=== PATIENT | male | born 1945 | race Caucasian/White ===

== ENCOUNTER 2020-05-14 10:44 | Emergency (ER) | payer MEDICARE, OTHER ==
--- NOTE | 2020-05-14 11:07 | ED Physician Documentation ---
PD HPI CHEST PAIN - Stated complaint Stated Complaint: CHEST PAIN, COLD SWEAT - Chief complaint Chief Complaint: Cardiac - History obtained from History obtained from: Patient, Family - History of Present Illness Timing - onset: Enter time (929), Today Timing - onset during: Rest Timing - duration: Minutes (30) Timing - details: Abrupt onset, Now resolved Quality: Sharp, Pain Location: Left chest Improved by: Other (time) Worsened by: No: Exertion, Inspiration, Eating, Movement, Palpation, Position Associated symptoms: Diaphoresis. No: Shortness of air, Nausea, Feeling faint / dizzy, General Weakness, Palpitations, Cough Similar symptoms before: Has not had sx before Recently seen: Not recently seen - Additional information Additional information: Previously well 75-year-old male who is visiting from [place] has recently driven here from [place] and he stayed in [place] 2 nights he stayed on would be 2 nights and this morning after having 2 hard boiled eggs and orange soda while standing up he developed some pain in his left chest that was accompanied by some diaphoresis without nausea or shortness of breath. The patient indicates that he has not been ill recently he drove up here from [place] with his stopping every 100 miles to get out of the car and walk around and he does not believe he is really any kind of a set up for clots. The patient has had prior stress echo related to some palpitations and he has not had angiogram. He had a negative stress echo. He indicates a family history of late onset congestive failure with his grandparents dying in their 90s. Review of Systems Constitutional: reports: Sweats. denies: Fever Eyes: denies: Decreased vision Ears: denies: Ear pain Nose: denies: Rhinorrhea / runny nose, Congestion Throat: denies: Sore throat Cardiac: reports: Chest pain / pressure. denies: Palpitations, Pedal edema, Calf pain Respiratory: denies: Dyspnea, Cough, Wheezing GI: denies: Abdominal Pain, Nausea, Vomiting : denies: Dysuria, Frequency Skin: denies: Rash Musculoskeletal: denies: Neck pain, Back pain, Extremity pain Neurologic: denies: Generalized weakness, Focal weakness, Numbness PD PAST MEDICAL HISTORY - Allergies Allergies/Adverse Reactions: Allergies Allergy/AdvReac Type Severity Reaction Status Date / Time No Known Drug Allergies Allergy Verified 05/14/20 11:39 PD ED PE NORMAL - Vitals Vital signs reviewed: Yes (hypertensive ) - General General: Alert and oriented X 3, No acute distress, Well developed/nourished - HEENT HEENT: Atraumatic, PERRL, EOMI - Neck Neck: Supple, no meningeal sign, No bony TTP - Cardiac Cardiac: RRR, No murmur - Respiratory Respiratory: No respiratory distress, Clear bilaterally - Abdomen Abdomen: Normal bowel sounds, Soft, Non tender, Non distended, No organomegaly - Back Back: No CVA TTP, No spinal TTP - Derm Derm: Normal color, Warm and dry, No rash - Extremities Extremities: No deformity, No edema - Neuro Neuro: Alert and oriented X 3, zigzag appliquer 2-12 intact, No motor deficit, No sensory deficit, Normal speech Eye Opening: Spontaneous Motor: Obeys Commands Verbal: Oriented GCS Score: 15 - Psych Psych: Normal mood, Normal affect Results - Vitals Vitals: Vital Signs - 24 hr 05/14/20 05/14/20 05/14/20 10:48 10:53 11:19 Temperature 36.8 C 36.8 C Heart Rate 60 57 L Respiratory 16 14 Rate Blood Pressure 171/101 H 160/89 H Blood Pressure 155/94 H [Left] Blood Pressure 154/92 H [Right] O2 Saturation 97 97 05/14/20 05/14/20 05/14/20 11:30 12:00 12:30 Temperature 36.6 C Heart Rate 55 L 55 L 54 L Respiratory 16 17 17 Rate Blood Pressure 154/88 H 155/85 H 151/96 H Blood Pressure [Left] Blood Pressure [Right] O2 Saturation 95 97 98 Oxygen O2 Source Room air - EKG (time done) 1052 Anderson: LAD Other comments: Other comments (early transition ) Compare to prior EKG: Old EKG unavailable Computer interpretation: Agree with computer - Labs Labs: Laboratory Tests 05/14/20 05/14/20 05/14/20 10:50 10:50 10:50 WBC 8.6 RBC 5.23 Hgb 17.0 Hct 48.9 MCV 93.5 MCH 32.5 H MCHC 34.8 RDW 13.0 Plt Count 180 MPV 10.4 Neut # (Auto) 5.8 Lymph # (Auto) 1.9 Riley # (Auto) 0.6 Eos # (Auto) 0.2 Baso # (Auto) 0.1 Absolute Nucleated RBC 0.00 Nucleated RBC % 0.0 D-Dimer Sodium 142 Potassium 4.1 Chloride 110 Carbon Dioxide 23 Anion Gap 9.0 BUN 18 Creatinine 0.9 Estimated GFR (MDRD) 82 L Glucose 103 H Calcium 9.4 Total Bilirubin 0.9 AST 14 ALT 14 Alkaline Phosphatase 75 Troponin I High Sens 3.6 Total Protein 7.2 Albumin 4.4 Globulin 2.8 Albumin/Globulin Ratio 1.6 Lipase 32 05/14/20 05/14/20 10:50 12:43 WBC RBC Hgb Hct MCV MCH MCHC RDW Plt Count MPV Neut # (Auto) Lymph # (Auto) Riley # (Auto) Eos # (Auto) Baso # (Auto) Absolute Nucleated RBC Nucleated RBC % D-Dimer 218.6 Sodium Potassium Chloride Carbon Dioxide Anion Gap BUN Creatinine Estimated GFR (MDRD) Glucose Calcium Total Bilirubin AST ALT Alkaline Phosphatase Troponin I High Sens 3.6 Total Protein Albumin Globulin Albumin/Globulin Ratio Lipase PD MEDICAL DECISION MAKING - ED course Complexity details: reviewed results, re-evaluated patient, considered differential, d/w patient, d/w family ED course: Previously well 75-year-old male without a history of coronary disease has developed acute left-sided chest pain shortly after eating 2 hard boiled eggs and a orange soda. He did have some diaphoresis with this but no dyspnea or lightheadedness his symptoms resolved in a 30-minute. And he has 2 normal troponins a normal-appearing electrocardiogram normal-appearing chest x-ray and a negative d-dimer. Departure - Departure Disposition: 01 Home, Self Care Clinical Impression: Atypical chest pain Condition: Stable Instructions: ED Chest Pain Atypical Unkn Cause Follow-Up: Your, doctor [Other] Comments: This episode of pain is most likely related to the food you ate just before the episode. There is no evidence of damage to your heart or abnormalities of any lab values. The chest x-ray and EKG are normal and your "d-dimer" was negative. My recommendation is to have a stress test done when you return home and to return for re-evaluation with any episode you have as we do not expect this to happen again.
[2020-05-14 11:14] LABS: ALBUMIN 4.4 g/dL (3.2-5.5); ALBUMIN/GLOBULIN RATIO 1.6 (1.0-2.2); BILIRUBIN,TOTAL 0.9 mg/dL (0.2-1.0); CALCIUM 9.4 mg/dL (8.5-10.3); CREATININE 0.9 mg/dL (0.6-1.2); TOTAL PROTEIN 7.2 g/dL (6.7-8.2)
[2020-05-14 11:16] LABS: BASOPHILS # (AUTO) 0.1 10^3/uL (0.0-0.1); BASOPHILS % (AUTO) 0.7 %; EOSINOPHILS # (AUTO) 0.2 10^3/uL (0.0-0.7); EOSINOPHILS % (AUTO) 2.1 %; LYMPHOCYTES # (AUTO) 1.9 10^3/uL (1.5-3.5); LYMPHOCYTES % (AUTO) 21.7 %; MEAN CORPUSCULAR HEMOGLOBIN 32.5 pg (27.0-31.0); MEAN CORPUSCULAR HGB CONC 34.8 g/dL (32.0-36.0); MEAN CORPUSCULAR VOLUME 93.5 fL (80.0-94.0); MEAN PLATELET VOLUME 10.4 fL (7.4-11.4); MONOCYTES # (AUTO) 0.6 10^3/uL (0.0-1.0); NEUTROPHILS # (AUTO) 5.8 10^3/uL (1.5-6.6); NEUTROPHILS % (AUTO) 67.5 %; PLT - PLATELET COUNT 180 10^3/uL (130-450); RED BLOOD COUNT 5.23 10^6/uL (4.70-6.10); WHITE BLOOD COUNT 8.6 x10^3/uL (4.8-10.8)
--- NOTE | 2020-05-14 11:42 | XRAY Report ---
PROCEDURE: Chest 1 View X-Ray INDICATIONS: Chest pain TECHNIQUE: One view of the chest was acquired. COMPARISON: None FINDINGS: Surgical changes and devices: None. Lungs and pleura: No pleural effusions or pneumothorax. Lungs are clear. Mediastinum: Mediastinal contours appear normal. Heart size is normal. Bones and chest wall: No suspicious bony lesions. Overlying soft tissues appear unremarkable. IMPRESSION: No acute cardiopulmonary disease process. Reviewed by: Sweetie Deluca MD, PhD on 05/14/2020 11:41 AM PDT Approved by: Sweetie Deluca MD, PhD on 05/14/2020 11:41 AM PDT Station ID: [id number]
[2020-05-14 13:44] VITALS: BP 152/79
== END 2020-05-14 13:47 | disposition home or self-care (01) ==
LOC: ED 10:44
DX: R07.89 Other chest pain (principal); I44.4 Left anterior fascicular block
CPT/HCPCS: 36415; 71045; 80053; 83690; 84484; 85025; 85379; 93005; 99284